=== PATIENT | male | born 1985 | race Caucasian/White ===

== ENCOUNTER 2018-02-06 19:59 | Emergency (ER) | payer BC ==
--- NOTE | 2018-02-06 20:28 | ERPHSYRPT ---
- History of Present Illness Time Seen by Provider: 02/06/18 20:20 Source: patient Exam Limitations: no limitations Patient Subjective Stated Complaint: pt states he had swelling in his lower legs and feet when he woke up this morning. states he had some swelling previously this week but not as bad. Triage Nursing Assessment: pt alert and oriented, answers questions approp. pt ambulatory with steady gait ntoed. respirations nonlabored withl lungs cta. +1 edema noted to bilat ankles and feet. no pitting noted at this time. Physician History: 32 y/o male comes to the ER with complaints of bilateral leg swelling for the past couple of days. Pt admits that he had a difficult time walking this morning. Pt does not eat salt, no prolonged standing, no chest pain, or shortness of breath. Pt denies any leg pain, fever, chills or redness. Timing/Duration: today Allergies/Adverse Reactions: No Known Drug Allergies Allergy (Verified 02/06/18 20:18) Home Medications: No Reportable Medications [No Reported Medications] 02/06/18 [History] Hx Tetanus, Diphtheria Vaccination/Date Given: Yes Hx Influenza Vaccination/Date Given: No Hx Pneumococcal Vaccination/Date Given: No Immunizations Up to Date: Yes - Review of Systems Constitutional: No Fever, No Chills Eyes: No Symptoms Ears, Nose, & Throat: No Symptoms Respiratory: No Cough, No Dyspnea Cardiac: Edema, No Chest Pain, No Palpitations, No Syncope Abdominal/Gastrointestinal: No Abdominal Pain, No Nausea, No Vomiting, No Diarrhea Genitourinary Symptoms: No Dysuria Musculoskeletal: No Back Pain, No Neck Pain Skin: No Rash Neurological: No Dizziness, No Focal Weakness, No Sensory Changes Psychological: No Symptoms Endocrine: No Symptoms All Other Systems: Reviewed and Negative - Past Medical History Pertinent Past Medical History: No - Past Surgical History Past Surgical History: Yes Gastrointestinal: Hernia Repair - Social History Smoking Status: Never smoker Exposure to second hand smoke: No Drug Use: none Patient Lives Alone: No - Nursing Vital Signs Nursing Vital Signs: Initial Vital Signs Temperature 97.4 F 02/06/18 20:04 Pulse Rate 64 02/06/18 20:04 Respiratory Rate 16 02/06/18 20:04 Blood Pressure 127/79 02/06/18 20:04 O2 Sat by Pulse Oximetry 97 05/16/18 20:04 Pain Scale Pain Intensity 0 - Physical Exam General Appearance: no apparent distress, alert Eye Exam: PERRL/EOMI, eyes nml inspection Ears, Nose, Throat Exam: normal ENT inspection, TMs normal, pharynx normal, moist mucous membranes Neck Exam: normal inspection, non-tender, supple, full range of motion Respiratory Exam: normal breath sounds, lungs clear, No respiratory distress Cardiovascular Exam: regular rate/rhythm, normal heart sounds, normal peripheral pulses Gastrointestinal/Abdomen Exam: soft, normal bowel sounds, No tenderness, No mass Back Exam: normal inspection, normal range of motion, No CVA tenderness, No vertebral tenderness Extremity Exam: normal inspection, normal range of motion, pelvis stable, pedal edema, No mary's sign Neurologic Exam: alert, oriented x 3, cooperative, normal mood/affect, nml cerebellar function, nml station & gait, sensation nml, No motor deficits Skin Exam: normal color, warm, dry, No rash Lymphatic Exam: No adenopathy SpO2: 97 Oxygen Delivery: Room Air - Course Nursing assessment & vital signs reviewed: Yes Ordered Tests: Active Orders 24 hr Category Date Time Status CBC W DIFF Stat Lab 02/06/18 21:00 Completed CMP Stat Lab 02/06/18 21:00 Completed D-DIMER QUANTITATION Stat Lab 02/06/18 21:00 Completed NT PRO BNP Stat Lab 02/06/18 21:00 Completed Lab/Rad Data: Laboratory Result Diagrams 02/06/18 21:00 02/06/18 21:00 Laboratory Results 02/06/18 02/06/18 02/06/18 Range/Units 21:00 21:00 21:00 WBC 6.6 (4.0-10.5) K/mm3 RBC 4.45 (4.1-5.6) M/mm3 Hgb 13.7 (12.5-18.0) gm/dl Hct 40.1 L (42-50) % MCV 90.1 (78-100) fl MCH 30.8 (26-32) pg MCHC 34.2 (32-36) g/dl RDW 13.0 (11.5-14.0) % Plt Count 248 (150-450) K/mm3 MPV 9.9 H (6-9.5) fl Gran % 51.5 (36.0-66.0) % Eos # (Auto) 0.45 (0-0.5) Absolute Lymphs (auto) 2.05 (1.0-4.6) Absolute Monos (auto) 0.69 (0.0-1.3) Lymphocytes % 31.0 (24.0-44.0) % Monocytes % 10.4 (0.0-12.0) % Eosinophils % 6.8 H (0.00-5.0) % Basophils % 0.3 (0.0-0.4) % Absolute Granulocytes 3.40 (1.4-6.9) Basophils # 0.02 (0-0.4) D-Dimer < 215 L (215-500) ng/mL Sodium 141 (137-145) mmol/L Potassium 3.8 (3.5-5.1) mmol/L Chloride 103 (98-107) mmol/L Carbon Dioxide 28 (22-30) mmol/L Anion Gap 14.7 (5-15) MEQ/L BUN 8 L (9-20) mg/dL Creatinine 0.96 (0.66-1.25) mg/dL Estimated GFR > 60.0 ML/MIN Glucose 112 H (74-106) mg/dL Calcium 9.3 (8.4-10.2) mg/dL Total Bilirubin 0.20 (0.2-1.3) mg/dL AST 19 (17-59) U/L ALT 16 (0-50) U/L Alkaline Phosphatase 56 (38-126) U/L NT-Pro-B Natriuret Pep < 11.1 (0-450) pg/mL Serum Total Protein 6.8 (6.3-8.2) g/dL Albumin 4.0 (3.5-5.0) g/dL - Progress Progress: unchanged Progress Note: 02/06/18 21:41 The patient has remained asymptomatic in the ER. The labs are unremarkable with a negative d dimer. Pt will F/U with his PCP. - Departure Time of Disposition: 21:42 Departure Disposition: Home Clinical Impression: Leg edema Condition: Stable Critical Care Time: No Referrals: JACQUES ROBBINS MD [Primary Care Provider] - Instructions: Peripheral Edema -- Bilateral Additional Instructions: Follow up with your primary care doctor in the next few days for additional testing for lower extremity swelling.
[2018-02-06 20:57] LABS: BASOPHIL % 0.3 % (0.0-0.4); Basophil (Absolute #) 0.02 (0-0.4); Eosinophil % 6.8 % (0.00-5.0); Eosinophil (Absolute #) 0.45 (0-0.5); Granulocytes % 51.5 % (36.0-66.0); Hematocrit 40.1 % (42-50); Hemoglobin 13.7 gm/dl (12.5-18.0); Lymphocyte (Absolute #) 2.05 (1.0-4.6); Mean Cell Volume 90.1 fl (78-100); Mean Corpuscular Hemoglobin 30.8 pg (26-32); Mean Corpuscular Hgb Concent. 34.2 g/dl (32-36); Mean Platelet Volume 9.9 fl (6-9.5); Monocyte (Absolute #) 0.69 (0.0-1.3); Monocytes % 10.4 % (0.0-12.0); Platelet Count 248 K/mm3 (150-450); Red Blood Count 4.45 M/mm3 (4.1-5.6); White Blood Count 6.6 K/mm3 (4.0-10.5)
[2018-02-06 21:17] LABS: ALKALINE PHOSPHATASE 56 U/L (38-126); ANION GAP 14.7 MEQ/L (5-15); BLOOD UREA NITROGEN 8 mg/dL (9-20); CHLORIDE 103 mmol/L (98-107); Calcium 9.3 mg/dL (8.4-10.2); Carbon Dioxide 28 mmol/L (22-30); Creatinine 1 0.96 mg/dL (0.66-1.25); Glucose 112 mg/dL (74-106); Potassium 3.8 mmol/L (3.5-5.1); SGOT/AST 19 U/L (17-59); SGPT/ALT 16 U/L (0-50); SODIUM 141 mmol/L (137-145); Total Protein 6.8 g/dL (6.3-8.2)
[2018-02-06 21:26] LABS: NT PRO BNP < 11.1 pg/mL (0-450)
[2018-02-06 21:33] VITALS: BP 121/69
[2018-02-06 21:52] VITALS: PULSE 70; O2SAT 96
== END 2018-02-06 21:52 | disposition home or self-care (01) ==
LOC: ED 19:59
DX: R60.0 Localized edema (principal)
CPT/HCPCS: 36415; 80053; 83880; 85025; 85379; 99283

== ENCOUNTER 2019-04-14 19:43 | Emergency (ER) | payer OTHER ==
[2019-04-14 19:59] VITALS: BP 131/84; PULSE 69; O2SAT 96
--- NOTE | 2019-04-14 20:11 | ERPHSYRPT ---
- History of Present Illness Time Seen by Provider: 04/14/19 20:05 Source: patient Exam Limitations: no limitations Physician History: C/o rash, itching left lower leg x 5 days. He denies fever, chills, nausea, other complaints. He denies taking any medications or using externals. Timing/Duration: day(s) (5) Quality: itchy, painful Severity: mild Location: extremities (left lower leg) Possible Causes: no cause identified Modifying Factors: Improves With: other (none) Associated Symptoms: blisters, rash Allergies/Adverse Reactions: No Known Drug Allergies Allergy (Verified 02/06/18 20:18) Hx Tetanus, Diphtheria Vaccination/Date Given: Yes Hx Influenza Vaccination/Date Given: No Hx Pneumococcal Vaccination/Date Given: No - Review of Systems Constitutional: No Symptoms Eyes: No Symptoms Ears, Nose, & Throat: No Symptoms Respiratory: No Symptoms Cardiac: No Symptoms Abdominal/Gastrointestinal: No Symptoms Skin: Other (rash, itching left lower leg) Neurological: No Symptoms All Other Systems: Reviewed and Negative - Past Medical History Pertinent Past Medical History: No - Past Surgical History Past Surgical History: Yes Gastrointestinal: Hernia Repair - Social History Smoking Status: Never smoker Exposure to second hand smoke: No Drug Use: none Patient Lives Alone: No - Nursing Vital Signs Nursing Vital Signs: Initial Vital Signs Temperature 97.4 F 04/14/19 19:44 Pulse Rate 69 04/14/19 19:44 Respiratory Rate 17 04/14/19 19:44 Blood Pressure 131/84 04/14/19 19:44 O2 Sat by Pulse Oximetry 96 04/14/19 19:44 Pain Scale Pain Intensity 0 - Physical Exam General Appearance: no apparent distress Eye Exam: eyes nml inspection Ears, Nose, Throat Exam: normal ENT inspection, moist mucous membranes Neck Exam: normal inspection, non-tender Respiratory Exam: normal breath sounds, lungs clear, airway intact Cardiovascular Exam: regular rate/rhythm, normal heart sounds, normal peripheral pulses Gastrointestinal/Abdomen Exam: soft Extremity Exam: normal inspection, other (left lateral lower leg: papular, vesicular exanthems in large groups, and linear arrangements, typical contact dermatitis, poison [place], no severe edema, other lesions.), No calf tenderness, No pedal edema Neurologic Exam: alert, oriented x 3, normal mood/affect Skin Exam: normal color, warm, dry, rash, No diaphoresis Lymphatic Exam: No adenopathy SpO2 Interpretation: normal SpO2: 96 O2 Delivery: Room Air - Course Nursing assessment & vital signs reviewed: Yes - Progress Progress: unchanged Progress Note: 04/14/19 20:09 Pt was educated about the diagnosis, he is being discharged on PO Medrol dosepak , and advised to take Benadryl (OTC) 1-2 every 4 hours as needed, use externals , topical steroid or Calamine and rest x 2-3 days, ,follow up with his physician in 2-3 days. Counseled pt/family regarding: diagnosis, need for follow-up - Departure Departure Disposition: Home Clinical Impression: Poison [place] dermatitis Condition: Stable Critical Care Time: No Instructions: Poison [place], Poison [place], Poison [place] (DC) Additional Instructions: Rest x 2-3 days with elevated legs, take Benadryl as needed (OTC), use topical externals (Calamine) and follow up with your physician in 2-3 days, return if severe pain, swelling, fever> 102 F or difficulty breathing! Prescriptions: Methylprednisolone Packet [Medrol Dosepack] 4 mg PO UD #1 packet
== END 2019-04-14 20:24 | disposition home or self-care (01) ==
LOC: ED 19:43
DX: L23.7 Allergic contact dermatitis due to plants, except food (principal)
CPT/HCPCS: 99283

== ENCOUNTER 2019-05-31 13:23 | Emergency (ER) | payer OTHER ==
--- NOTE | 2019-05-31 14:01 | ERPHSYRPT ---
- History of Present Illness Time Seen by Provider: 05/31/19 14:01 Source: patient Exam Limitations: no limitations Patient Subjective Stated Complaint: pt reports nasal congestion and fever starting today. pt reports temp at home of 103. Triage Nursing Assessment: pt is aox3, pupils perrl, febrile, resps easy and non labored, radial pulses strong and equal, cap refill < 3 seconds, pt flushed , warm dry. Fever Severity: moderate Fever Therapy [employer]EL[employer]: Acetaminophen Associated Symptoms: muscle aches, sore throat, weakness International travel in last 2 weeks: No Allergies/Adverse Reactions: No Known Drug Allergies Allergy (Verified 05/31/19 13:51) Hx Tetanus, Diphtheria Vaccination/Date Given: Yes Hx Influenza Vaccination/Date Given: No Hx Pneumococcal Vaccination/Date Given: No Immunizations Up to Date: Yes - Review of Systems Constitutional: Fever, Weakness, No Chills Eyes: No Symptoms Ears, Nose, & Throat: No Symptoms, Throat Pain Respiratory: No Cough, No Dyspnea Cardiac: No Chest Pain, No Edema, No Syncope Abdominal/Gastrointestinal: No Abdominal Pain, No Nausea, No Vomiting, No Diarrhea Genitourinary Symptoms: No Dysuria Musculoskeletal: No Back Pain, No Neck Pain Skin: No Rash Neurological: No Dizziness, No Focal Weakness, No Sensory Changes Psychological: No Symptoms Endocrine: No Symptoms All Other Systems: Reviewed and Negative - Past Medical History Pertinent Past Medical History: No Neurological History: No Pertinent History ENT History: No Pertinent History Cardiac History: No Pertinent History Respiratory History: Asthma Endocrine Medical History: No Pertinent History Musculoskeletal History: No Pertinent History GI Medical History: Hernia History: No Pertinent History Psycho-Social History: No Pertinent History Male Reproductive Disorders: No Pertinent History Other Medical History: asthma as a kid, has outgrown it - Past Surgical History Past Surgical History: Yes Neuro Surgical History: No Pertinent History Cardiac: No Pertinent History Respiratory: No Pertinent History Gastrointestinal: Hernia Repair Genitourinary: No Pertinent History Musculoskeletal: No Pertinent History Male Surgical History: No Pertinent History - Social History Smoking Status: Never smoker Exposure to second hand smoke: No Drug Use: none Patient Lives Alone: No - Nursing Vital Signs Nursing Vital Signs: Initial Vital Signs Temperature 100.4 F 05/31/19 13:39 Pulse Rate 71 05/31/19 13:39 Respiratory Rate 20 05/31/19 13:39 Blood Pressure 132/81 05/31/19 13:39 O2 Sat by Pulse Oximetry 98 05/31/19 13:39 Pain Scale Pain Intensity 0 - Physical Exam General Appearance: no apparent distress, alert Eye Exam: PERRL/EOMI ENT Exam: normal ENT inspection, pharyngeal erythema, No tonsillar exudate Neck Exam: supple, full range of motion, No meningismus Respiratory Exam: normal breath sounds, lungs clear, no respiratory distress Cardiovascular/Chest Exam: normal heart sounds, regular rate/rhythm, No murmur, No edema Gastrointestinal/Abdominal Exam: soft, non tender, no distention Extremity Exam: non-tender, normal range of motion, normal inspection, normal capillary refill Neurologic Exam: alert, oriented x 3, cooperative, rheumatologist II-XII nml as tested, normal mood/affect, sensation nml, No motor deficits Skin Exam: normal color, warm, dry, No rash SpO2: 98 - Course Nursing assessment & vital signs reviewed: Yes Ordered Tests: Medication Summary Discontinued Medications Generic Name Dose Route Start Last Admin Trade Name Freq PRN Reason Stop Dose Admin Ceftriaxone Sodium 1,000 mg 05/31/19 14:08 05/31/19 14:16 Rocephin 1000 Mg Inj IM 05/31/19 14:09 1,000 mg STAT ONE Administration Ceftriaxone Sodium Confirm 05/31/19 14:12 Rocephin 1000 Mg Inj Administered 05/31/19 14:13 Dose 1,000 mg .ROUTE .STK-MED ONE - Progress Progress: unchanged Counseled pt/family regarding: diagnosis, need for follow-up - Departure Departure Disposition: Home Clinical Impression: Pharyngitis Qualifiers: Pharyngitis/tonsillitis etiology: unspecified etiology Qualified Code(s): J02.9 - Acute pharyngitis, unspecified Condition: Stable Critical Care Time: No Referrals: DOCTOR,NO FAMILY [Primary Care Provider] - Instructions: Sore Throat in Adults, Sore Throat, Adult (DC) Forms: Work/School Release Form Prescriptions: Cephalexin Mh 500 mg [Keflex 500 mg] 500 mg PO Q6H #40 capsule
[2019-05-31] MEDS ORDERED: Rocephin 1000 MG INJ IM ONE (14:08)
[2019-05-31] MEDS ORDERED: Rocephin 1000 MG INJ ONE (14:12)
[2019-05-31 14:39] VITALS: BP 113/76; PULSE 102; O2SAT 99
== END 2019-05-31 14:37 | disposition home or self-care (01) ==
LOC: ED 13:23
DX: J02.9 Acute pharyngitis, unspecified (principal)
CPT/HCPCS: 96372; 99283; J0696

== ENCOUNTER 2019-06-01 17:09 | Emergency (ER) | payer OTHER ==
[2019-06-01] MEDS ORDERED: DUONEB 0.5-3 MG/3 ml Neb IH ONE ×2 (17:12→17:18)
[2019-06-01] MEDS ORDERED: Sodium Chloride 0.9% 1000 ML 1,000 ML IV STA (17:12)
[2019-06-01] MEDS ORDERED: Sodium Chloride 0.9% 1000 ML 1,000 ML ONE (17:25)
--- NOTE | 2019-06-01 17:29 | ERPHSYRPT ---
- History of Present Illness Time Seen by Provider: 06/01/19 17:28 Source: patient, family Exam Limitations: no limitations Patient Subjective Stated Complaint: Pt was here yesterday due to a fever and sore throat, was told that he probably has strep throat, back today due to feeling short of breath, fever, not feeling good Triage Nursing Assessment: Pt walked into the ER, tachycardic, hypertensive, pulses normal, denies pain, face flushed, short of breath Physician History: Pt was here yesterday due to a fever and sore throat, was told that he probably has strep throat, back today due to feeling short of breath, fever, not feeling good Timing/Duration: day(s) Cough Quality/Degree: no cough Possible Cause: no prior episodes Associated Symptoms: fever, chills, headache, shortness of breath, sore throat International travel in last 2 weeks: No Allergies/Adverse Reactions: No Known Drug Allergies Allergy (Verified 06/01/19 17:20) Hx Tetanus, Diphtheria Vaccination/Date Given: Yes Hx Influenza Vaccination/Date Given: No Hx Pneumococcal Vaccination/Date Given: No - Review of Systems Constitutional: Fever, Chills Eyes: No Symptoms Ears, Nose, & Throat: No Symptoms, Throat Pain Respiratory: Dyspnea on Exertion (NGUYEN), No Cough, No Dyspnea Cardiac: No Chest Pain, No Edema, No Syncope Abdominal/Gastrointestinal: No Abdominal Pain, No Nausea, No Vomiting, No Diarrhea Genitourinary Symptoms: No Dysuria Musculoskeletal: No Back Pain, No Neck Pain Skin: No Rash Neurological: No Dizziness, No Focal Weakness, No Sensory Changes Psychological: No Symptoms Endocrine: No Symptoms All Other Systems: Reviewed and Negative - Past Medical History Pertinent Past Medical History: Yes Neurological History: No Pertinent History ENT History: No Pertinent History Cardiac History: No Pertinent History Respiratory History: Asthma Endocrine Medical History: No Pertinent History Musculoskeletal History: No Pertinent History GI Medical History: Hernia History: No Pertinent History Psycho-Social History: No Pertinent History Male Reproductive Disorders: No Pertinent History Other Medical History: asthma as a kid, has outgrown it - Past Surgical History Past Surgical History: Yes Neuro Surgical History: No Pertinent History Cardiac: No Pertinent History Respiratory: No Pertinent History Gastrointestinal: Hernia Repair Genitourinary: No Pertinent History Musculoskeletal: No Pertinent History Male Surgical History: No Pertinent History - Social History Smoking Status: Never smoker Exposure to second hand smoke: No Drug Use: none Patient Lives Alone: No - Nursing Vital Signs Nursing Vital Signs: Initial Vital Signs Temperature 100.3 F 06/01/19 17:11 Pulse Rate 115 H 06/01/19 17:11 Respiratory Rate 12 06/01/19 17:11 Blood Pressure 147/76 06/01/19 17:11 O2 Sat by Pulse Oximetry 100 06/01/19 17:11 Pain Scale Pain Intensity 0 - Physical Exam General Appearance: no apparent distress, alert Eye Exam: PERRL/EOMI, eyes nml inspection Ears, Nose, Throat Exam: normal ENT inspection, TMs normal, pharynx normal, moist mucous membranes, pharyngeal erythema Neck Exam: normal inspection, non-tender, supple, full range of motion Respiratory Exam: normal breath sounds, lungs clear, No respiratory distress Cardiovascular Exam: regular rate/rhythm, normal heart sounds Gastrointestinal/Abdomen Exam: soft, No tenderness Back Exam: normal inspection, No CVA tenderness, No vertebral tenderness Extremity Exam: normal inspection, normal range of motion Neurologic Exam: alert, oriented x 3, cooperative, normal mood/affect, sensation nml, No motor deficits Skin Exam: normal color, warm, dry, No rash Lymphatic Exam: No adenopathy SpO2: 100 - Course Nursing assessment & vital signs reviewed: Yes EKG Interpreted by Me: Sinus Rhythm - Radiology Exams Chest X-ray Interpretation: Reviewed by me (no acute infiltrate) Ordered Tests: Active Orders 24 hr Category Date Time Status Oxygen-ED Only Nasal Cannula 2 lpm Care 06/01/19 17:12 Active CHEST 2 VIEWS (PA AND LAT) Stat Exams 06/01/19 17:49 Taken CBC W DIFF Stat Lab 06/01/19 17:26 Completed CMP Stat Lab 06/01/19 17:26 Completed Lactic Acid Stat Lab 06/01/19 17:24 Ordered Lactic Acid Urgent Lab 06/01/19 17:25 Completed Arthur Screen Stat Lab 06/01/19 17:26 Completed Peak Expiratory Flow Rate ONCE RT 06/01/19 17:34 Completed Respiratory Therapy Assessment DAILY RT 06/01/19 17:35 Completed Medication Summary Generic Name Dose Route Start Last Admin Trade Name Freq PRN Reason Stop Dose Admin Sodium Chloride 1,000 mls @ 999 mls/hr 06/01/19 17:12 06/01/19 17:26 Sodium Chloride 0.9% 1000 Ml IV 06/01/19 18:12 999 mls/hr .Q1H1M STA Administration Ceftriaxone Sodium/Dextrose 1 g in 50 mls @ 100 mls/hr 06/01/19 17:36 Rocephin 1 Gm-D5w 50 Ml Bag IV 06/01/19 18:05 STAT STA Discontinued Medications Generic Name Dose Route Start Last Admin Trade Name Cynthia PRN Reason Stop Dose Admin Albuterol/Ipratropium 3 ml 06/01/19 17:12 06/01/19 17:36 Duoneb 0.5-3 Mg/3 Ml Neb IH 06/01/19 17:13 3 ml STAT ONE Administration Albuterol/Ipratropium Confirm 06/01/19 17:18 Duoneb 0.5-3 Mg/3 Ml Neb Administered 06/01/19 17:19 Dose 3 ml IH .STK-MED ONE Sodium Chloride Confirm 06/01/19 17:25 Sodium Chloride 0.9% 1000 Ml Administered 06/01/19 17:26 Dose 1,000 mls @ ud .ROUTE .STK-MED ONE Lab/Rad Data: Laboratory Result Diagrams 06/01/19 17:26 06/01/19 17:26 Laboratory Results 06/01/19 06/01/19 06/01/19 Range/Units 17:26 17:26 17:26 WBC (4.0-10.5) K/mm3 RBC (4.1-5.6) M/mm3 Hgb (12.5-18.0) gm/dl Hct (42-50) % MCV (78-100) fl MCH (26-32) pg MCHC (32-36) g/dl RDW (11.5-14.0) % Plt Count (150-450) K/mm3 MPV (6-9.5) fl Gran % (36.0-66.0) % Eos # (Auto) (0-0.5) Absolute Lymphs (auto) (1.0-4.6) Absolute Monos (auto) (0.0-1.3) Lymphocytes % (24.0-44.0) % Monocytes % (0.0-12.0) % Eosinophils % (0.00-5.0) % Basophils % (0.0-0.4) % Absolute Granulocytes (1.4-6.9) Basophils # (0-0.4) Sodium 136 L (137-145) mmol/L Potassium 4.4 (3.5-5.1) mmol/L Chloride 101 (98-107) mmol/L Carbon Dioxide 24 (22-30) mmol/L Anion Gap 15.6 H (5-15) MEQ/L BUN 12 (9-20) mg/dL Creatinine 1.19 (0.66-1.25) mg/dL Estimated GFR > 60.0 ML/MIN Glucose 99 (74-106) mg/dL Lactic Acid (0.4-2.0) Calcium 10.1 (8.4-10.2) mg/dL Total Bilirubin 0.70 (0.2-1.3) mg/dL AST 24 (17-59) U/L ALT 18 (0-50) U/L Alkaline Phosphatase 62 (38-126) U/L Serum Total Protein 8.3 H (6.3-8.2) g/dL Albumin 4.6 (3.5-5.0) g/dL Monoscreen NEGATIVE (Negative) Group A Strep Antibody POSITIVE (NEGATIVE) 06/01/19 06/01/19 Range/Units 17:26 17:25 WBC 13.0 H (4.0-10.5) K/mm3 RBC 5.06 (4.1-5.6) M/mm3 Hgb 15.6 (12.5-18.0) gm/dl Hct 46.1 (42-50) % MCV 91.1 (78-100) fl MCH 30.8 (26-32) pg MCHC 33.8 (32-36) g/dl RDW 12.9 (11.5-14.0) % Plt Count 209 (150-450) K/mm3 MPV 9.9 H (6-9.5) fl Gran % 79.6 H (36.0-66.0) % Eos # (Auto) 0.03 (0-0.5) Absolute Lymphs (auto) 1.38 (1.0-4.6) Absolute Monos (auto) 1.24 (0.0-1.3) Lymphocytes % 10.6 L (24.0-44.0) % Monocytes % 9.5 (0.0-12.0) % Eosinophils % 0.2 (0.00-5.0) % Basophils % 0.1 (0.0-0.4) % Absolute Granulocytes 10.33 H (1.4-6.9) Basophils # 0.01 (0-0.4) Sodium (137-145) mmol/L Potassium (3.5-5.1) mmol/L Chloride (98-107) mmol/L Carbon Dioxide (22-30) mmol/L Anion Gap (5-15) MEQ/L BUN (9-20) mg/dL Creatinine (0.66-1.25) mg/dL Estimated GFR ML/MIN Glucose (74-106) mg/dL Lactic Acid 1.6 (0.4-2.0) Calcium (8.4-10.2) mg/dL Total Bilirubin (0.2-1.3) mg/dL AST (17-59) U/L ALT (0-50) U/L Alkaline Phosphatase (38-126) U/L Serum Total Protein (6.3-8.2) g/dL Albumin (3.5-5.0) g/dL Monoscreen (Negative) Group A Strep Antibody (NEGATIVE) - Progress Progress: improved Air Movement: good Blood Culture(s) Obtained: Yes Antibiotics given: Yes Counseled pt/family regarding: lab results, diagnosis, need for follow-up, rad results - Departure Departure Disposition: Home Clinical Impression: Strep pharyngitis Condition: Stable Critical Care Time: No Referrals: DOCTOR,NO FAMILY [NON-STAFF Y W/O PRIVILEGES] - Instructions: Strep Throat (DC) Additional Instructions: continue and finish antibiotics given to you. Discharge/Care Plan ROSA ELENAARMANI Basilio was seen on 06/01/19 in the Emergency Room. The patient was counseled regarding Diagnosis,Lab results, Imaging studies, need for follow up and when to return to the Emergency Room. Prescriptions given: Discharge Note I have spoken with the patient and/or caregivers. I have explained the patient' s condition, diagnosis and treatment plan based on the information available to me at this time. I have answered the patient's and/or caregiver's questions and addressed any concerns. The patient and/or caregivers have as good understanding of the patient's diagnosis, condition and treatment plan as can be expected at this point. The vital signs have been stable. The patient's condition is stable and appropriate for discharge from the emergency department. The patient will pursue further outpatient evaluation with the primary care physician or other designated or consulting physician as outlined in the discharge instructions. The patient and/or caregivers are agreeable to this plan of care and follow-up instructions have been explained in detail. The patient and/or caregivers have received these instruction. The patient/and or caregivers are aware that any significant change in condition or worsening of symptoms should prompt an immediate return to this or the closest emergency department or call 911. ROSA ELENAARMANI Basilio was seen on 06/01/19 n the Emergency Room. At that time you were treated for an emergent condition, during your visit Laboratory, Radiology and/or other procedures may have been ordered. It is very important that you follow-up with your Primary Care Physician JACQUES ROBBINS within the next 24- 48 hours to review your Emergency Room visit and the final results of testing that was ordered. Some test results such as Urine Cultures, Blood Cultures, and other cultures if ordered will not be finalized for 24-48 hours. If you do not have a Primary Care Provider please call the medical records department at [phone] ext [phone] to obtain a copy of your results or you may sign into our patient portal to obtain these results by visiting us @ [email or web address] and completing the following steps: 1. Click on the Patient Portal link 2. Click the Patient Self Enrollment Link to complete the enrollment form and entering your 3. Once the enrollment form is completed you will receive an email with a temporary ID and password at the email address you provided. 4. Next choose a user name and password. Your user name must be at least 4 characters long and your password must be at least 4 characters long. 5. Choose a security question from the list and provide your answer to the question. If you already have signed into the Health Portal you may access your Health Care Information 16/04 by the following steps: 1. Login to our website @ [email or web address] 2. Enter your original user name and password. FAQS The [facility] Health Portal is an online tool that contains your Lab Results, Radiology Reports, Visit History, Discharge Instructions and Health Summary Lab and Radiology Results will not be available for 72 hours on the portal. The Portal is a secure site, passwords are encryted and URLs are re-written so they cannot be copied and pasted. You and authorized family members are the only ones who can access your Portal. Also there is a timeout feature that protects your information if you leave the Portal page open. If you have technical difficulty please use the Contact Us link on the page this will allow you to submit any questions you have regarding the Portal or you may contact the Medical Record Department at [phone] ext [phone]. Forms: Work/School Release Form
[2019-06-01 17:30] LABS: BASOPHIL % 0.1 % (0.0-0.4); Basophil (Absolute #) 0.01 (0-0.4); Eosinophil % 0.2 % (0.00-5.0); Eosinophil (Absolute #) 0.03 (0-0.5); Granulocyte Absolute (ANC) 10.33 (1.4-6.9); Granulocytes % 79.6 % (36.0-66.0); Hematocrit 46.1 % (42-50); Hemoglobin 15.6 gm/dl (12.5-18.0); Lymphocyte (Absolute #) 1.38 (1.0-4.6); Lymphocytes % 10.6 % (24.0-44.0); Mean Cell Volume 91.1 fl (78-100); Mean Corpuscular Hemoglobin 30.8 pg (26-32); Mean Corpuscular Hgb Concent. 33.8 g/dl (32-36); Mean Platelet Volume 9.9 fl (6-9.5); Monocyte (Absolute #) 1.24 (0.0-1.3); Monocytes % 9.5 % (0.0-12.0); Platelet Count 209 K/mm3 (150-450); Red Blood Count 5.06 M/mm3 (4.1-5.6); Red Cell Distribution Width 12.9 % (11.5-14.0)
[2019-06-01] MEDS ORDERED: ROCEPHIN 1 Gm-D5w 50 ml Bag** 1 G/50 ML IVPB IV STA (17:36)
[2019-06-01 17:40] LABS: ALBUMIN 4.6 g/dL (3.5-5.0); ALKALINE PHOSPHATASE 62 U/L (38-126); ANION GAP 15.6 MEQ/L (5-15); BLOOD UREA NITROGEN 12 mg/dL (9-20); CHLORIDE 101 mmol/L (98-107); Calcium 10.1 mg/dL (8.4-10.2); Carbon Dioxide 24 mmol/L (22-30); Creatinine 1 1.19 mg/dL (0.66-1.25); Glucose 99 mg/dL (74-106); Potassium 4.4 mmol/L (3.5-5.1); SGOT/AST 24 U/L (17-59); SGPT/ALT 18 U/L (0-50); SODIUM 136 mmol/L (137-145); Total Protein 8.3 g/dL (6.3-8.2)
[2019-06-01] MEDS ORDERED: MOTRIN 400 MG PO ONE (18:09)
[2019-06-01] MEDS ORDERED: TYLENOL EXTRA STRENGTH 500 MG PO STA (18:09)
[2019-06-01] MEDS ORDERED: TYLENOL EXTRA STRENGTH 500 MG ONE (18:11)
[2019-06-01] MEDS ORDERED: ROCEPHIN 1 Gm-D5w 50 ml Bag** 1 G/50 ML IVPB IV ONE (18:11)
[2019-06-01] MEDS ORDERED: MOTRIN 400 MG ONE (18:11)
[2019-06-01 18:44] VITALS: BP 127/79; PULSE 78; O2SAT 98
--- NOTE | 2019-06-02 08:41 | XRAY ---
Exam: Two-view chest from 06/01/2019. Comparison: Upright PA chest film from 08/29/2018. Indication: Shortness of breath, fever. Findings: Upright PA and lateral chest films are submitted for evaluation. The heart size and contour are normal. The nakita and mediastinal structures appear intact. Inflation of the lungs is average. Pulmonary vascularity is within normal limits. No air space infiltrates, pneumothorax, or pleural fluid is seen. Very slight convexity of the lower thoracic spine toward the left centered at T8-T9 is seen. In retrospect, this is unchanged. No acute osseous process is seen. Impression: 1. No air space infiltrates to suggest pneumonia or other acute cardiopulmonary disease is seen, no change from 08/29/2018.
== END 2019-06-01 18:43 | disposition home or self-care (01) ==
LOC: ED 17:09
DX: J02.0 Streptococcal pharyngitis (principal)
CPT/HCPCS: 36415; 71046; 80053; 83605; 85025; 86308; 87651; 94150; 94640; 96360; 96365; 99284; J0696; A9270-GY

== ENCOUNTER 2022-05-31 08:38 | Emergency (ER) | payer OTHER ==
[2022-05-31 08:51] VITALS: BP 122/78; PULSE 64; O2SAT 98
[2022-05-31] MEDS ORDERED: Sodium Chloride 0.9% 1000 ML 1,000 ML IV STA (09:12)
[2022-05-31] MEDS ORDERED: Zofran 4 MG/2 ML VIAL IV ONE (09:12)
[2022-05-31] MEDS ORDERED: Hydromorphone 1 mg/ml Injection IV ONE (09:12)
--- NOTE | 2022-05-31 09:12 | ERPHSYRPT ---
- History of Present Illness Time Seen by Provider: 05/31/22 09:05 Historian: patient, family Exam Limitations: no limitations Patient Subjective Stated Complaint: PT states "I am supposed to have a ct today of my belly but Last night I had the most horrible abdominal pain. I just had blood work at [place]." Triage Nursing Assessment: Pt presented alert and oriented X 3, skin pwd Pt ambulates with an upright steady gait, able to speak in clear full sentences pt in no apaprent respiratory distress. Pt resting comfortably on the bed. Physician History: This is a 36-year-old white male who is a patient of a primary care provider at a [facility] and was having abdominal pain and diagnosed with "stomach" infection. A prescription for antibiotics was sent to his pharmacy to treat an H. pylori infection. He does not know the name of those at this time. Patient began having more significant pain last evening and then again this morning. He vomited secondary to the intensity of his pain. Patient also has been having intermittent diarrhea. A CAT scan of the abdomen and pelvis was scheduled for t his afternoon but the pain became more severe. Patient has had a hernia surgery in the past but no other abdominal surgeries. Patient has been diagnosed with a gluten allergy. Patient denies shortness of breath. He denies chest pain. Timing/Duration: yesterday Abdominal Pain Onset Location: epigastric, periumbilical Pain Radiation: no radiation Severity of Pain-Max: moderate Severity of Pain-Current: moderate Modifying Factors: Improves With: vomiting Associated Symptoms: diarrhea, loss of appetite, nausea, vomiting, No chest pain, No shortness of breath Previous symptoms: same symptoms as today, recently seen Allergies/Adverse Reactions: gluten Adverse Reaction (Intermediate, Verified 05/31/22 08:51) abdominal pain Home Medications: armodafiniL [Nuvigil] 200 mg PO DAILY 05/31/22 [History] Hx Tetanus, Diphtheria Vaccination/Date Given: Yes Hx Influenza Vaccination/Date Given: No Hx Pneumococcal Vaccination/Date Given: No Immunizations Up to Date: Yes Travel Risk - International Travel Have you traveled outside of the country in past 3 weeks: No - Coronavirus Screening Are you exhibiting any of the following symptoms?: Yes Symptoms: Vomiting/Diarrhea Close contact with a COVID-19 positive Pt in past 14-21 Days: No - Vaccine Status Have you recieved a Covid-19 vaccination: No - Review of Systems Constitutional: No Symptoms Eyes: No Symptoms Ears, Nose, & Throat: No Symptoms Respiratory: No Symptoms Cardiac: No Symptoms Abdominal/Gastrointestinal: Abdominal Pain, Nausea, Vomiting, Diarrhea Genitourinary Symptoms: No Symptoms Musculoskeletal: No Symptoms Skin: No Symptoms Neurological: No Symptoms Psychological: No Symptoms Endocrine: No Symptoms Hematologic/Lymphatic: No Symptoms Immunological/Allergic: No Symptoms All Other Systems: Reviewed and Negative - Past Medical History Pertinent Past Medical History: Yes Neurological History: No Pertinent History ENT History: No Pertinent History Cardiac History: No Pertinent History Respiratory History: Asthma Endocrine Medical History: No Pertinent History Musculoskeletal History: No Pertinent History GI Medical History: Hernia History: No Pertinent History Psycho-Social History: No Pertinent History Male Reproductive Disorders: No Pertinent History Other Medical History: asthma as a kid, has outgrown it - Past Surgical History Past Surgical History: Yes Neuro Surgical History: No Pertinent History Cardiac: No Pertinent History Respiratory: No Pertinent History Gastrointestinal: Hernia Repair Genitourinary: No Pertinent History Musculoskeletal: No Pertinent History Male Surgical History: No Pertinent History - Social History Smoking Status: Never smoker Exposure to second hand smoke: No Drug Use: none Patient Lives Alone: No - Nursing Vital Signs Nursing Vital Signs: Initial Vital Signs Temperature 97.3 F 05/31/22 08:46 Pulse Rate 64 05/31/22 08:46 Respiratory Rate 20 05/31/22 08:46 Blood Pressure 122/78 05/31/22 08:46 O2 Sat by Pulse Oximetry 98 05/31/22 08:46 Pain Scale Pain Intensity 4 - Physical Exam General Appearance: mild distress, alert, anxiety Eye Exam: PERRL/EOMI, eyes nml inspection Ears, Nose, Throat Exam: normal ENT inspection, moist mucous membranes Neck Exam: normal inspection, non-tender, supple, full range of motion Respiratory Exam: normal breath sounds, lungs clear, airway intact, No chest tenderness, No respiratory distress Cardiovascular Exam: regular rate/rhythm, normal heart sounds, normal peripheral pulses Gastrointestinal/Abdomen Exam: soft, normal bowel sounds, tenderness (Epigastric and mid supra umbilical tenderness to palpation), guarding, No rebound Rectal Exam: not done Back Exam: normal inspection, normal range of motion, No CVA tenderness, No vertebral tenderness Extremity Exam: normal inspection, normal range of motion, pelvis stable Neurologic Exam: alert, oriented x 3, cooperative, electronics mechanic II-XII nml as tested, normal mood/affect, nml cerebellar function, nml station & gait, sensation nml Skin Exam: normal color, warm, dry Lymphatic Exam: No adenopathy SpO2 Interpretation: normal SpO2: 98 O2 Delivery: Room Air - Course Nursing assessment & vital signs reviewed: Yes Ordered Tests: Active Orders 24 hr Category Date Time Status IV Insertion STAT Care 05/31/22 09:12 Active ABDOMEN AND PELVIS W/0 CONTRAS [CT] Stat Exams 05/31/22 09:12 Completed AMYLASE Stat Lab 05/31/22 09:39 Completed CBC W DIFF Stat Lab 05/31/22 09:39 Received CMP Stat Lab 05/31/22 09:39 Completed LIPASE Stat Lab 05/31/22 09:39 Completed Lactic Acid Stat Lab 05/31/22 09:12 Completed UA W/RFX CULTURE Stat Lab 05/31/22 Ordered Medication Summary Discontinued Medications Generic Name Dose Route Start Last Admin Trade Name Freq PRN Reason Stop Dose Admin Hydromorphone HCl 1 mg 05/31/22 09:12 Hydromorphone 1 Mg/1ml Inj 1 Mg/Ml Syringe IV 05/31/22 09:13 STAT ONE Hydromorphone HCl Confirm 05/31/22 09:17 Hydromorphone 1 Mg/1ml Inj 1 Mg/Ml Syringe Administered 05/31/22 09:18 Dose 1 mg .ROUTE .STK-MED ONE Sodium Chloride 1,000 mls @ 999 mls/hr 05/31/22 09:12 Sodium Chloride 0.9% 1000 Ml IV 05/31/22 10:12 .Q1H1M STA Sodium Chloride Confirm 05/31/22 09:17 Sodium Chloride 0.9% 1000 Ml Administered 05/31/22 09:18 Dose 1,000 mls @ ud .ROUTE .STK-MED ONE Ondansetron HCl 4 mg 05/31/22 09:12 Ondansetron Hcl 4 Mg/2 Ml Vial IV 05/31/22 09:13 STAT ONE Ondansetron HCl Confirm 05/31/22 09:17 Ondansetron Hcl 4 Mg/2 Ml Vial Administered 05/31/22 09:18 Dose 4 mg .ROUTE .STK-MED ONE Lab/Rad Data: Laboratory Result Diagrams 05/31/22 09:39 Laboratory Results 05/31/22 05/31/22 Range/Units 09:39 09:12 Sodium 137 (137-145) mmol/L Potassium 3.9 (3.5-5.1) mmol/L Chloride 104 (98-107) mmol/L Carbon Dioxide 25 (22-30) mmol/L Anion Gap 11.4 (5-15) MEQ/L BUN 12 (9-20) mg/dL Creatinine 1.01 (0.66-1.25) mg/dL Estimated GFR > 60.0 ML/MIN Glucose 97 (74-106) mg/dL Lactic Acid 0.7 (0.4-2.0) Calcium 8.8 (8.4-10.2) mg/dL Total Bilirubin 0.50 (0.2-1.3) mg/dL AST 23 (17-59) U/L ALT 18 (0-50) U/L Alkaline Phosphatase 63 (38-126) U/L Serum Total Protein 7.1 (6.3-8.2) g/dL Albumin 4.2 (3.5-5.0) g/dL Amylase 67 (30-110) U/L Lipase 53 (23-300) U/L - Progress Progress Note: 05/31/22 10:01 Patient is now refusing an IV placement and blood draws. They attempted to obtain an IV but were unsuccessful. We will have him sign a refusal of treatment/care form. 05/31/22 10:03 CAT scan of the abdomen pelvis without contrast shows mesenteric adenitis. There is a mildly distended gallbladder. There is a normal appendix. There is no other acute intra-abdominal or intrapelvic findings. Counseled pt/family regarding: diagnosis, need for follow-up, rad results - Departure Departure Disposition: Home Clinical Impression: Mesenteric adenitis Condition: Stable Critical Care Time: No Referrals: DOCTOR,NO FAMILY [Primary Care Provider] - Follow up/PCP as directed Additional Instructions: Drink plenty of clear liquids. Advance your diet slowly once tolerating clear liquids well. Fill the prescriptions your primary care provider wrote for you. Follow-up with your primary care physician for further evaluation and management. Forms: Work/School Release Form Prescriptions: Ondansetron ODT 4 MG [Zofran Odt 4 mg] 4 mg PO Q6H PRN PRN #10 tablet PRN Reason: Vomiting
[2022-05-31] MEDS ORDERED: Zofran 4 MG/2 ML VIAL ONE (09:17)
[2022-05-31] MEDS ORDERED: Hydromorphone 1 mg/ml Injection ONE (09:17)
[2022-05-31] MEDS ORDERED: Sodium Chloride 0.9% 1000 ML 0 ML ONE (09:17)
[2022-05-31 09:56] LABS: ALBUMIN 4.2 g/dL (3.5-5.0); ALKALINE PHOSPHATASE 63 U/L (38-126); AMYLASE 67 U/L (30-110); ANION GAP 11.4 MEQ/L (5-15); BLOOD UREA NITROGEN 12 mg/dL (9-20); CHLORIDE 104 mmol/L (98-107); Calcium 8.8 mg/dL (8.4-10.2); Carbon Dioxide 25 mmol/L (22-30); Creatinine 1 1.01 mg/dL (0.66-1.25); EST GLOMERULAR FILTRATION RATE > 60.0 ML/MIN; Glucose 97 mg/dL (74-106); LIPASE 53 U/L (23-300); Potassium 3.9 mmol/L (3.5-5.1); SGOT/AST 23 U/L (17-59); SGPT/ALT 18 U/L (0-50); SODIUM 137 mmol/L (137-145); Total Protein 7.1 g/dL (6.3-8.2)
--- NOTE | 2022-05-31 09:57 | XRAY ---
Indication: Abdomen pain and vomiting 2 days. Multiple contiguous axial images obtained through the abdomen and pelvis without contrast. Comparison: None Lung bases demonstrate mild dependent atelectasis. Heart Stomach is mildly fluid distended. Noncontrasted stomach and bowel loops appear nonobstructed with normal appendix. Mild scattered small mid mesenteric nodes with minimal stranding favoring adenitis. No free fluid/air. Gallbladder mildly distended without gallstones or biliary distention. Remaining liver, gallbladder, pancreas, spleen, adrenal glands, kidneys, ureters, bladder, and aorta appear unremarkable for noncontrast exam. Osseous structures intact with minimal lumbosacral junction degenerative changes. No ventral or inguinal hernias. Impression: 1. Small mesenteric nodes with minimal stranding favoring mesenteric adenitis. 2. Mild distended gallbladder without gallstones or biliary distention. Sonogram may yield further information if clinically warranted. 3. Remaining CT abdomen/pelvis without contrast exam is negative.
== END 2022-05-31 10:35 | disposition home or self-care (01) ==
LOC: ED 08:38
DX: I88.0 Nonspecific mesenteric lymphadenitis (principal); R10.13 Epigastric pain; R10.33 Periumbilical pain; R19.7 Diarrhea, unspecified; R11.2 Nausea with vomiting, unspecified; Z79.899 Other long term (current) drug therapy; Z28.310 Unvaccinated for COVID-19
CPT/HCPCS: 36415; 74176; 80053; 82150; 83605; 83690; 99283; J1170; J2405